=== PATIENT | female | born 1970 | race Caucasian/White ===

== ENCOUNTER 2024-04-08 11:58 | Day surgery (SDC) | payer BC, MEDICARE ==
[2024-04-08] MEDS ORDERED: Decadron 4 MG INJ IV ONE (11:59)
[2024-04-08] MEDS ORDERED: Sodium Chloride 0.9(Preservative Free) 10 ML IJ ONE (11:59)
[2024-04-08] MEDS ORDERED: LIDOCAINE HCL 1% AMPUL 5 ML IJ ONE (11:59)
[2024-04-08] MEDS ORDERED: Versed 2 MG/2 ML Injection ONE (13:22)
[2024-04-08] MEDS ORDERED: DIPRIVAN 200 MG/20 ML IV ONE ×2 (14:13→14:24)
[2024-04-08] MEDS ORDERED: MORPHINE SULFATE 2 MG INJ ONE ×2 (14:51→15:12)
--- NOTE | 2024-04-08 16:35 | XRAY ---
Indication: Left L5-S2 transforaminal CONNER. Intraoperative fluoroscopy provided for 1 minute 1 second. 6 digital spot image submitted for interpretation demonstrates posterior needle tips projecting over expected left L5 and S1 nerve roots. Small amount of contrast injected for needle tip placement. Correlate with intraoperative findings/report. Incidental incompletely visualized bilateral SI joint fusion screws, lower lumbar fusion hardware, and left epidural generator/lead.
--- NOTE | 2024-04-08 16:35 | XRAY ---
Indication: Left piriformis injection. Intraoperative fluoroscopy provided for 7 second. Single digital spot image submitted for interpretation demonstrates posterior needle tip projecting over left piriformis. Small amount of contrast injected for needle tip placement. Correlate with intraoperative findings/report. Incidental left SI joint fusion screw and incompletely visualized left epidural generator/lead.
--- NOTE | 2024-04-08 16:47 | XRAY ---
One minute and 1 second of fluoroscopy was used in surgery for a left L5-S2 transforaminal CONNER.
--- NOTE | 2024-04-08 16:47 | XRAY ---
7 seconds of fluoroscopy was used in surgery for a left piriformis injection.
== END 2024-04-08 15:40 ==
LOC: SDC-PAIN 11:58
PROVIDERS: ATTEND Psychiatry & Neurology Pain Medicine
DX: M54.16 Radiculopathy, lumbar region (principal); M79.18 Myalgia, other site
CPT/HCPCS: 20552; 64483; 64484; 72100; 72170; 77002; 77003; J1100; J2250; J2270; J2704; Q9966

== ENCOUNTER 2024-06-18 11:08 | Day surgery (SDC) | payer BC, MEDICARE ==
[2024-06-18] MEDS ORDERED: Depo-Medrol 40 MG/ML IM ONE (11:09)
[2024-06-18] MEDS ORDERED: LIDOCAINE HCL 2% 100 MG/5 ML IJ ONE (11:09)
[2024-06-18] MEDS ORDERED: Versed 2 MG/2 ML Injection ONE (12:07)
[2024-06-18] MEDS ORDERED: propofoL IV ONE ×2 (12:24→12:29)
[2024-06-18] MEDS: DUONEB 0.5-3 MG/3 ml Neb IH ONE (12:53)
[2024-06-18 12:57] VITALS: PULSE 84; RESP 20; O2SAT 99
--- NOTE | 2024-06-18 13:38 | XRAY ---
Indication: Bilateral L4-S1 MBB. Intraoperative fluoroscopy provided for 22 seconds. Single digital spot image submitted for interpretation demonstrates posterior needle tips projecting over expected left and right L4-S1 nerve roots. Correlate with intraoperative findings/report. Incidental incompletely visualized upper lumbar posterior fusion hardware, incompletely visualized bilateral SI joint fusion screws, and incompletely visualized left epidural leads.
--- NOTE | 2024-06-18 14:04 | XRAY ---
22 seconds of fluoroscopy was used in surgery for a bilateral L4-S1 MBB.
== END 2024-06-18 13:10 | disposition home or self-care (01) ==
LOC: SDC-PAIN 11:08
PROVIDERS: ATTEND Psychiatry & Neurology Pain Medicine
DX: M47.816 Spondylosis without myelopathy or radiculopathy, lumbar region (principal)
CPT/HCPCS: 64493; 64494; 72020; 77002; 94640; J2250; J2704; A9270-GY

== ENCOUNTER 2024-07-23 07:54 | Day surgery (SDC) | payer BC, MEDICARE ==
[2024-07-23] MEDS ORDERED: methylPREDNISolone acetate IM ONE (07:55)
[2024-07-23] MEDS ORDERED: BUPIVACAINE 0.5% VIAL IJ ONE (07:55)
[2024-07-23] MEDS ORDERED: Versed 2 MG/2 ML Injection ONE (09:15)
[2024-07-23] MEDS ORDERED: propofoL IV ONE (09:46)
--- NOTE | 2024-07-23 20:53 | XRAY ---
Indication: Bilateral L4-S1 MBB. Intraoperative fluoroscopy provided for 16 seconds. Single digital spot image submitted for interpretation demonstrates posterior needle tips projecting over expected left and right L4-S1 nerve roots. Correlate with intraoperative findings/report. Incidental incompletely visualized upper lumbar fusion hardware, incompletely visualized bilateral SI joint fusion screws, and incompletely visualized left epidural leads
--- NOTE | 2024-07-23 21:51 | XRAY ---
16 seconds of fluoroscopy was used in surgery for a bilateral L4-S1 MBB.
== END 2024-07-23 10:28 | disposition home or self-care (01) ==
LOC: SDC-PAIN 07:54
PROVIDERS: ATTEND Psychiatry & Neurology Pain Medicine
DX: M47.816 Spondylosis without myelopathy or radiculopathy, lumbar region (principal)
CPT/HCPCS: 64493; 64494; 72020; 77002; J1010; J2250; J2704

== ENCOUNTER 2024-09-10 08:55 | Day surgery (SDC) | payer BC, MEDICARE ==
[2024-09-10] MEDS ORDERED: Depo-Medrol 40 MG/ML IM ONE (08:56)
[2024-09-10] MEDS ORDERED: BUPIVACAINE 0.5% VIAL IJ ONE (08:56)
[2024-09-10] MEDS ORDERED: LIDOCAINE HCL 1% AMPUL 5 ML IJ ONE (08:56)
[2024-09-10] MEDS ORDERED: Lactated Ringers 500 ML IV ONE (09:09)
[2024-09-10] MEDS ORDERED: Versed 2 MG/2 ML Injection ONE (09:37)
[2024-09-10] MEDS ORDERED: propofoL IV ONE (10:31)
--- NOTE | 2024-09-10 19:25 | XRAY ---
21 seconds of fluoroscopy was used in surgery for a left L4-S1 RFA.
--- NOTE | 2024-09-10 19:35 | XRAY ---
Indication: Left L4-S1 RFA. Intraoperative fluoroscopy provided for 21 seconds. 3 digital spot image submitted for interpretation demonstrates posterior needle tips projecting over expected left L4-S1 nerve roots. Correlate with intraoperative findings/report. Incidental incompletely visualized mid to lower lumbar fusion hardware and left epidural generator/leads.
== END 2024-09-10 11:04 | disposition home or self-care (01) ==
LOC: SDC-PAIN 08:55
PROVIDERS: ATTEND Psychiatry & Neurology Pain Medicine
DX: M47.817 Spondylosis without myelopathy or radiculopathy, lumbosacral region (principal)
CPT/HCPCS: 64635; 64636; 72100; J2250; J2704

== ENCOUNTER 2024-09-17 11:03 | Day surgery (SDC) | payer BC, MEDICARE ==
[2024-09-17] MEDS ORDERED: LIDOCAINE HCL 1% AMPUL 5 ML IJ ONE (11:04)
[2024-09-17] MEDS ORDERED: BUPIVACAINE 0.5% VIAL IJ ONE (11:04)
[2024-09-17] MEDS ORDERED: Depo-Medrol 40 MG/ML IM ONE (11:04)
[2024-09-17] MEDS ORDERED: Versed 2 MG/2 ML Injection ONE (11:32)
[2024-09-17] MEDS ORDERED: propofoL IV ONE (12:53)
[2024-09-17] MEDS ORDERED: Lactated Ringers 1,000 ML IV ONE (13:14)
--- NOTE | 2024-09-17 16:23 | XRAY ---
Indication: Right L4-S1 RFA. Intraoperative fluoroscopy provided for 24 seconds. 3 digital spot image submitted for interpretation demonstrates posterior needle tips projecting over expected right L4-S1 nerve roots. Correlate with intraoperative findings/report. Incidental incompletely visualized right SI joint fusion screw.
--- NOTE | 2024-09-17 16:39 | XRAY ---
24 seconds of fluoroscopy used in surgery for a right L4-S1 RFA.
== END 2024-09-17 13:25 | disposition home or self-care (01) ==
LOC: SDC-PAIN 11:03
PROVIDERS: ATTEND Psychiatry & Neurology Pain Medicine
DX: M47.817 Spondylosis without myelopathy or radiculopathy, lumbosacral region (principal)
CPT/HCPCS: 64635; 64636; 72100; J2250; J2704